=== PATIENT | male | born 1955 | race Caucasian/White ===

== ENCOUNTER 2017-12-08 16:42 | Emergency (ER) | payer OTHER ==
[~2017-12-08] VITALS: Ht 172.7 cm; Wt 121.6 kg
[~2017-12-08 16:42] MED LIST: ALBU90OI61 INH; AMLO10 PO; ASPI81CH PO; ATOR20 PO; Atrovent Inha12.9 GM INH; BENA20 PO; Coenzyme Q10100 M1 PO; FURO40 PO; METO50ER PO; NICO21TP TD; PANT40 PO; TRAM50 PO; Zithromax500 MG PO
[2017-12-08 17:26] LABS: BASOPHILS ABSOLUTE AUTO 0.08 K/mm3 (0.00-0.23); BASOPHILS PERCENT AUTO 1 % (0-2); EOSINOPHILS ABSOLUTE AUTO 0.31 K/mm3 (0.00-0.68); EOSINOPHILS PERCENT AUTO 2 % (0-6); Hematocrit 44.4 % (37.0-53.0); Hemoglobin 14.7 g/dL (13.5-17.5); IMMATURE GRAN ABSOLUTE AUTO 0.06 K/mm3 (0.00-0.10); IMMATURE GRAN PERCENT AUTO 0 % (0-1); LYMPHOCYTES ABSOLUTE AUTO 4.29 K/mm3 (0.84-5.20); LYMPHOCYTES PERCENT AUTO 29 % (21-46); MONOCYTES ABSOLUTE AUTO 1.22 K/mm3 (0.16-1.47); MONOCYTES PERCENT AUTO 8 % (4-13); Mean Corpuscular HGB 29.5 pg (26.0-34.0); Mean Corpuscular HGB Conc 33.1 g/dL (31.5-36.5); Mean Corpuscular Volume 89 fL (80-100); NEUTROPHILS ABSOLUTE AUTO 8.66 K/mm3 (1.96-9.15); NEUTROPHILS PERCENT AUTO 59 % (41-73); Platelet Count 331 K/mm3 (150-400); RDW Coefficient Variation 12.6 % (11.7-14.2); RDW Standard Deviation 41.2 fL (35.1-46.3); Red Blood Cell Count 4.98 M/mm3 (4.30-5.90); White Blood Cell Count 14.62 K/mm3 (4.00-11.30)
[2017-12-08 17:46] LABS: Alanine Aminotransfer (ALT/SGP 42 U/L (12-78); Albumin, Blood 3.6 g/dL (3.4-5.0); Albumin/Globulin Ratio 0.8 (0.8-1.8); Alk Phos 98 U/L (50-136); Anion Gap 6 mmol/L (6-16); Aspartate Aminotrans (AST/SGOT 29 U/L (12-37); Bilirubin, Total 0.3 mg/dL (0.1-1.0); Blood Urea Nitrogen 9 mg/dL (8-24); Bun/Creatinine Ratio 9.8 (12.0-20.0); CO2, Blood 34 mmol/L (21-32); Calcium, Blood 9.1 mg/dL (8.5-10.1); Chloride, Blood 97 mmol/L (98-108); Creatinine, Blood 0.92 mg/dL (0.60-1.20); Globulin, Blood 4.3 g/dL (2.2-4.0); Glomerular Filtration Rate >60 (60-); Glucose, Blood 133 mg/dL (70-99); Potassium, Blood 3.4 mmol/L (3.5-5.5); Sodium, Blood 137 mmol/L (136-145); Total Protein, Blood 7.9 g/dL (6.4-8.2); Troponin I <0.015 ng/mL (0.000-0.040)
[2017-12-08] MEDS ORDERED: K-TAB ER20 MEQ PO (18:05)
== END 2017-12-08 18:14 | disposition home or self-care (01) ==
LOC: ER 16:42
PROVIDERS: Emergency Medicine
DX: I10 Essential (primary) hypertension (principal); E87.6 Hypokalemia; F17.210 Nicotine dependence, cigarettes, uncomplicated; Z88.5 Allergy status to narcotic agent; Z91.010 Allergy to peanuts; Z91.011 Allergy to milk products; Z79.899 Other long term (current) drug therapy; Z79.51 Long term (current) use of inhaled steroids; Z79.82 Long term (current) use of aspirin; Z87.442 Personal history of urinary calculi
CPT/HCPCS: 36415; 71046; 80053; 84484; 85025; 93005; 93010; 99284-25

== ENCOUNTER 2018-04-12 10:47 | Emergency (ER) | payer OTHER ==
[~2018-04-12] VITALS: Ht 172.7 cm; Wt 117.9 kg
[~2018-04-12 10:47] MED LIST changes: +K-TAB ER20 MEQ PO
[2018-04-12 11:09] LABS: Source, Urine Clean Catch
[2018-04-12 11:14] LABS: Bilirubin, Urine Neg (Neg); Blood, Urine 5+ (Neg); Glucose Qualitative, Urine Neg (Neg); Ketones, Urine Neg (Neg); Leukocyte Esterase, Urine Neg (Neg); Nitrite, Urine Neg (Neg); Protein, Urine Neg (Neg); Urobilinogen, Urine NORM (Normal)
[2018-04-12 11:26] LABS: Appearance, Urine Hazy (Clear); Bacteria Not Seen /hpf; Color, Urine Yellow (P-Yellow); Squamous Epithelial Cells Rare /hpf (Few); White Blood Cells, Urine Not Seen /hpf (0-5)
[2018-04-12 11:31] LABS: BASOPHILS ABSOLUTE AUTO 0.07 K/mm3 (0.00-0.23); BASOPHILS PERCENT AUTO 1 % (0-2); EOSINOPHILS ABSOLUTE AUTO 0.24 K/mm3 (0.00-0.68); EOSINOPHILS PERCENT AUTO 2 % (0-6); Hemoglobin 15.6 g/dL (13.5-17.5); IMMATURE GRAN ABSOLUTE AUTO 0.05 K/mm3 (0.00-0.10); IMMATURE GRAN PERCENT AUTO 0 % (0-1); LYMPHOCYTES ABSOLUTE AUTO 4.48 K/mm3 (0.84-5.20); LYMPHOCYTES PERCENT AUTO 30 % (21-46); MONOCYTES ABSOLUTE AUTO 1.17 K/mm3 (0.16-1.47); MONOCYTES PERCENT AUTO 8 % (4-13); Mean Corpuscular HGB 28.8 pg (26.0-34.0); Mean Corpuscular HGB Conc 32.5 g/dL (31.5-36.5); Mean Corpuscular Volume 89 fL (80-100); NEUTROPHILS PERCENT AUTO 60 % (41-73); Platelet Count 336 K/mm3 (150-400); RDW Coefficient Variation 13.3 % (11.7-14.2); RDW Standard Deviation 43.6 fL (35.1-46.3); Red Blood Cell Count 5.42 M/mm3 (4.30-5.90); White Blood Cell Count 15.11 K/mm3 (4.00-11.30)
[2018-04-12 11:51] LABS: Alanine Aminotransfer (ALT/SGP 30 U/L (12-78); Albumin, Blood 3.5 g/dL (3.4-5.0); Albumin/Globulin Ratio 0.8 (0.8-1.8); Alk Phos 82 U/L (50-136); Anion Gap 6 mmol/L (6-16); Aspartate Aminotrans (AST/SGOT 24 U/L (12-37); Bilirubin, Total 0.5 mg/dL (0.1-1.0); Blood Urea Nitrogen 10 mg/dL (8-24); Bun/Creatinine Ratio 10.1 (12.0-20.0); CO2, Blood 30 mmol/L (21-32); Calcium, Blood 8.7 mg/dL (8.5-10.1); Chloride, Blood 100 mmol/L (98-108); Creatinine, Blood 0.99 mg/dL (0.60-1.20); Globulin, Blood 4.3 g/dL (2.2-4.0); Glomerular Filtration Rate >60 (60-); Glucose, Blood 100 mg/dL (70-99); Potassium, Blood 4.3 mmol/L (3.5-5.5); Sodium, Blood 136 mmol/L (136-145); Total Protein, Blood 7.8 g/dL (6.4-8.2)
== END 2018-04-12 12:31 | disposition home or self-care (01) ==
LOC: ER 10:47
PROVIDERS: Physician Assistant
DX: R31.9 Hematuria, unspecified (principal); Z88.5 Allergy status to narcotic agent; Z91.010 Allergy to peanuts; Z91.011 Allergy to milk products; Z79.899 Other long term (current) drug therapy; Z79.82 Long term (current) use of aspirin; I10 Essential (primary) hypertension; F17.210 Nicotine dependence, cigarettes, uncomplicated
CPT/HCPCS: 36415; 74176; 80053; 81001; 85025; 96374; 96375; 99284-25; J1885; J3010

== ENCOUNTER 2020-01-25 16:54 | Inpatient (IN) | payer OTHER ==
[~2020-01-25] VITALS: Ht 172.7 cm; Wt 132.3 kg
[~2020-01-25 16:54] MED LIST changes: -ALBU90OI61 INH; -ASPI81CH PO; -ATOR20 PO; -Atrovent Inha12.9 GM INH; -Coenzyme Q10100 M1 PO; -FURO40 PO; -METO50ER PO; -PANT40 PO
[2020-01-25 17:49] LABS: BASOPHILS ABSOLUTE AUTO 0.06 K/mm3 (0.00-0.23); BASOPHILS PERCENT AUTO 0 % (0-2); EOSINOPHILS ABSOLUTE AUTO 0.19 K/mm3 (0.00-0.68); EOSINOPHILS PERCENT AUTO 1 % (0-6); Hematocrit 41.3 % (37.0-53.0); Hemoglobin 13.5 g/dL (13.5-17.5); IMMATURE GRAN ABSOLUTE AUTO 0.07 K/mm3 (0.00-0.10); IMMATURE GRAN PERCENT AUTO 1 % (0-1); LYMPHOCYTES ABSOLUTE AUTO 4.31 K/mm3 (0.84-5.20); LYMPHOCYTES PERCENT AUTO 31 % (21-46); MONOCYTES ABSOLUTE AUTO 1.17 K/mm3 (0.16-1.47); MONOCYTES PERCENT AUTO 9 % (4-13); Mean Corpuscular HGB 29.3 pg (26.0-34.0); Mean Corpuscular HGB Conc 32.7 g/dL (31.5-36.5); Mean Corpuscular Volume 90 fL (80-100); Mean Platelet Volume 9.3 fL (9.1-12.4); NEUTROPHILS ABSOLUTE AUTO 7.95 K/mm3 (1.96-9.15); NEUTROPHILS PERCENT AUTO 58 % (41-73); Platelet Count 375 K/mm3 (150-400); RDW Coefficient Variation 12.5 % (11.7-14.2); RDW Standard Deviation 41.1 fL (35.1-46.3); Red Blood Cell Count 4.61 M/mm3 (4.30-5.90); White Blood Cell Count 13.75 K/mm3 (4.00-11.30)
[2020-01-25 18:30] LABS: Troponin I <0.015 ng/mL (0.000-0.040)
[2020-01-25 18:32] LABS: Alanine Aminotransfer (ALT/SGP 40 U/L (12-78); Albumin, Blood 3.8 g/dL (3.4-5.0); Alk Phos 157 U/L (50-136); Anion Gap 6 mmol/L (6-16); Aspartate Aminotrans (AST/SGOT 22 U/L (12-37); Bilirubin, Total 0.3 mg/dL (0.1-1.0); Blood Urea Nitrogen 13 mg/dL (8-24); Bun/Creatinine Ratio 13.3 (12.0-20.0); CO2, Blood 31 mmol/L (21-32); Calcium, Blood 9.4 mg/dL (8.5-10.1); Chloride, Blood 102 mmol/L (98-108); Creatinine, Blood 0.98 mg/dL (0.60-1.20); Glomerular Filtration Rate >60 (60-); Glucose, Blood 281 mg/dL (70-99); Potassium, Blood 3.8 mmol/L (3.5-5.5); Sodium, Blood 139 mmol/L (136-145); Total Protein, Blood 7.8 g/dL (6.4-8.2)
[2020-01-25] MEDS ORDERED: ALBU90OI61 INH (19:57)
[2020-01-25] MEDS ORDERED: SYMBICORT 160-4.6 GM INH (22:03)
[2020-01-25] MEDS ORDERED: Aspir 8181 MG PO (22:07)
[2020-01-25] MEDS ORDERED: ATOR80 PO (22:08)
[2020-01-25] MEDS ORDERED: BASAGLAR K100 UNIT/1 SC (22:09)
[2020-01-25] MEDS ORDERED: BENAZEPRIL HCL40 M1 PO (22:09)
[2020-01-25] MEDS ORDERED: DILT180 PO (22:10)
[2020-01-25] MEDS ORDERED: FURO20 PO (22:11)
[2020-01-25] MEDS ORDERED: FINA5 PO (22:11)
[2020-01-25] MEDS ORDERED: Isosorbide Mono30 MG PO (22:12)
[2020-01-25] MEDS ORDERED: METF500C PO (22:13)
[2020-01-25] MEDS ORDERED: METO100ER PO (22:13)
[2020-01-25] MEDS ORDERED: PANT40 PO (22:14)
[2020-01-25] MEDS ORDERED: POTCHL20ER PO (22:14)
[2020-01-25] MEDS ORDERED: RANOLAZINE ER500 M2 PO (22:16)
[2020-01-25] MEDS ORDERED: IPRAT-ALBUT 0.5-3 ML NEB (22:17)
[2020-01-25] MEDS ORDERED: TAMS.4ER PO (22:18)
[2020-01-25] MEDS ORDERED: Coenzyme Q10100 M1 PO (22:59)
[2020-01-25] MEDS ORDERED: SENN187 PO (23:00)
[2020-01-25] MEDS ORDERED: HYDMOR2 PO (23:00)
[2020-01-26 05:28] LABS: BASOPHILS ABSOLUTE AUTO 0.06 K/mm3 (0.00-0.23); BASOPHILS PERCENT AUTO 1 % (0-2); EOSINOPHILS ABSOLUTE AUTO 0.22 K/mm3 (0.00-0.68); EOSINOPHILS PERCENT AUTO 2 % (0-6); Hematocrit 36.6 % (37.0-53.0); Hemoglobin 11.7 g/dL (13.5-17.5); IMMATURE GRAN ABSOLUTE AUTO 0.07 K/mm3 (0.00-0.10); IMMATURE GRAN PERCENT AUTO 1 % (0-1); LYMPHOCYTES ABSOLUTE AUTO 3.83 K/mm3 (0.84-5.20); LYMPHOCYTES PERCENT AUTO 31 % (21-46); MONOCYTES ABSOLUTE AUTO 1.07 K/mm3 (0.16-1.47); MONOCYTES PERCENT AUTO 9 % (4-13); Mean Corpuscular HGB 28.7 pg (26.0-34.0); Mean Corpuscular Volume 90 fL (80-100); Mean Platelet Volume 9.4 fL (9.1-12.4); NEUTROPHILS ABSOLUTE AUTO 7.28 K/mm3 (1.96-9.15); NEUTROPHILS PERCENT AUTO 58 % (41-73); Platelet Count 326 K/mm3 (150-400); RDW Coefficient Variation 12.3 % (11.7-14.2); RDW Standard Deviation 40.2 fL (35.1-46.3); Red Blood Cell Count 4.07 M/mm3 (4.30-5.90); White Blood Cell Count 12.53 K/mm3 (4.00-11.30)
--- NOTE | 2020-01-26 05:41 | NUR ---
SHIFT SUMMARY PT HAS SLEPT FROM ABOUT 0200 TO THE PRESENT TIME. HE IS ALERT AND ORIENTED X 4. HIS VITALS ARE STABLE, SINUS TO SINUS SHIRA (57-70). BP HAS BEEN UP AND DOWN. NITROGLYCERIN GTTP INFUSING AT 10 MCG/MIN. DR. PEÑALOZA WANTS HIM TO STAY BETWEEN 160-180 T/O THE NIGHT BEST POSSIBLE. HE IS SLEEPING WITH HIS HOME CPAP, WITH A 2L O2 BLEED IN. LAST NIGHT HE WAS HAVING 5/10 CHEST PAIN AND A 10/10 HEADACHE, AND THEN HE RECEIVED DILAUDID AND FELL ASLEEP. HE IS INDEPENDENT IN THE BED, REPOSITIONING SELF. BED LOW AND LOCKED. CALL LIGHT WITIN JUAN.
[2020-01-26 06:02] LABS: Alanine Aminotransfer (ALT/SGP 33 U/L (12-78); Albumin, Blood 3.1 g/dL (3.4-5.0); Albumin/Globulin Ratio 0.9 (0.8-1.8); Alk Phos 88 U/L (50-136); Anion Gap 7 mmol/L (6-16); Aspartate Aminotrans (AST/SGOT 19 U/L (12-37); Bilirubin, Total 0.5 mg/dL (0.1-1.0); Blood Urea Nitrogen 13 mg/dL (8-24); Bun/Creatinine Ratio 14.9 (12.0-20.0); CO2, Blood 30 mmol/L (21-32); Calcium, Blood 8.4 mg/dL (8.5-10.1); Chloride, Blood 101 mmol/L (98-108); Creatinine, Blood 0.87 mg/dL (0.60-1.20); Globulin, Blood 3.5 g/dL (2.2-4.0); Glomerular Filtration Rate >60 (60-); Glucose, Blood 172 mg/dL (70-99); Potassium, Blood 3.4 mmol/L (3.5-5.5); Sodium, Blood 138 mmol/L (136-145); Total Protein, Blood 6.6 g/dL (6.4-8.2); Troponin I <0.015 ng/mL (0.000-0.040)
--- NOTE | 2020-01-26 10:48 | NUR ---
CARE ASSUMED ASSESSMENT COMPLETED, PT ON NITRO GTT AT 5MCG, TITRATING TO KEEP SBP 160-180. PT USES CPAP AT NIGHT, OFF AT THIS TIME AND USING 2L/NC WHICH IS PT'S BASELINE. BP LABILE, OTHER VSS. ALERT AND ORIENTED, SPEECH MUMBLED BUT ANSWERS ARE APPROPRIATE, PT COOEPRATIVE WITH CARE. PT REPORTS BACK PAIN 11/05, MEDICATED PER MAY. BREAKFAST AND PO MEDS TOLERATED WELL. DR. RUCKER IN TO SEE PATIENT. IV TO R UPPER ARM INFILTRATED, DC'D WITH TIP INTACT. NITRO GTT MOVED TO L AC, RATE DECREASED TO 5MCG, BP 160'S SYSTOLIC.
[2020-01-26 13:53] LABS: BASOPHILS ABSOLUTE AUTO 0.06 K/mm3 (0.00-0.23); BASOPHILS PERCENT AUTO 1 % (0-2); EOSINOPHILS ABSOLUTE AUTO 0.22 K/mm3 (0.00-0.68); EOSINOPHILS PERCENT AUTO 2 % (0-6); Hematocrit 36.2 % (37.0-53.0); Hemoglobin 11.8 g/dL (13.5-17.5); IMMATURE GRAN ABSOLUTE AUTO 0.05 K/mm3 (0.00-0.10); IMMATURE GRAN PERCENT AUTO 0 % (0-1); LYMPHOCYTES ABSOLUTE AUTO 3.69 K/mm3 (0.84-5.20); LYMPHOCYTES PERCENT AUTO 29 % (21-46); MONOCYTES ABSOLUTE AUTO 1.05 K/mm3 (0.16-1.47); MONOCYTES PERCENT AUTO 8 % (4-13); Mean Corpuscular HGB 29.4 pg (26.0-34.0); Mean Corpuscular HGB Conc 32.6 g/dL (31.5-36.5); Mean Corpuscular Volume 90 fL (80-100); Mean Platelet Volume 9.4 fL (9.1-12.4); NEUTROPHILS ABSOLUTE AUTO 7.83 K/mm3 (1.96-9.15); NEUTROPHILS PERCENT AUTO 61 % (41-73); Platelet Count 339 K/mm3 (150-400); RDW Coefficient Variation 12.5 % (11.7-14.2); RDW Standard Deviation 41.4 fL (35.1-46.3); Red Blood Cell Count 4.02 M/mm3 (4.30-5.90)
--- NOTE | 2020-01-26 16:49 | NUR ---
UPADTE PT'S SBP CONTINUED TO BE >190, PO HYDRALAZINE ADMINISTERED WITH NO EFFECT. DR. RUCKER NOTIFIED, NEW ORDERS, NITRO GTT RESUMED AT 5MCG.
--- NOTE | 2020-01-26 19:19 | NUR ---
END OF SHIFT BP CONTINUES TO BE HYPERTENSIVE, INCREASES WITH STANDING AT BEDSIDE TO VOID. NITRO GTT UP TO 15MCG AT THIS TIME. PT REPORTS CP AND SOB ARE AT BASELINE LEVELS AT THIS TIME. HR REMAINS SINUS 70'S, OTHER VSS. DISCUSSED BP WITH DR. RUCKER, HCTZ ADMINISTERED PER ORDERS. AWARE THAT PT HAD A RENAL US IN [place] "A COUPLE OF YEARS AGO." PT PLEASANT AND COOPERATIVE, DENIES OTHER C/O, TOLERATED MEALS WELL. AT BEDSIDE, REPORT TO ONCOMING SHIFT.
--- NOTE | 2020-01-26 19:20 | NUR ---
ASSUMED PT CARE REPORT RECEIVED FROM MIGUELITO LOVE AT 1910, ASSUMED PT CARE AT THAT TIME. PT ALERT AND ORIENTED. LYING IN BED IN POSITION OF COMFORT. PT STATES CHEST PAIN IMPROVED FROM ADMIT BUT STILL PRESENT (10/05). PT HAS NITRO INFUSING AT 15MCG TO LEFT AC ACCESS. PT STATES THAT THIS GIVES HIM A HEADACHE. PT HAS NEW 18G TO RIGHT AC, SITE WNL. DRESSING INTACT. SBP GOAL 160-180. PT HR 70S SR ON MONITOR. PT SKIN INTACT. ABD SOFT BUT DISTENDED. BOWEL SOUNDS PRESENT. PT VOIDS PER URINAL. PT SATS >92% ON2L. PT WEARS 2L AT HOME, USES CPAP AT NIGHT. LUNG SOUNDS CLEAR TO UPPER VALENTIN, CLEAR AND DIMINISHED TO LOWER. PT AFEBRILE. CALL LIGHT IN REACH. LEAVING FOR THE EVENING. SEE FULL SHIFT ASSESSMENT
[2020-01-27 03:38] LABS: Anion Gap 6 mmol/L (6-16); Blood Urea Nitrogen 14 mg/dL (8-24); Bun/Creatinine Ratio 14.2 (12.0-20.0); CO2, Blood 30 mmol/L (21-32); Chloride, Blood 99 mmol/L (98-108); Creatinine, Blood 0.99 mg/dL (0.60-1.20); Glomerular Filtration Rate >60 (60-); Glucose, Blood 173 mg/dL (70-99); Potassium, Blood 3.6 mmol/L (3.5-5.5); Sodium, Blood 135 mmol/L (136-145)
--- NOTE | 2020-01-27 05:59 | NUR ---
SHIFT SUMMARY PT HAD GOOD NIGHT. PT REMAINED ALERT AND ORIENTED THROUGHOUT SHIFT. PT IN NSR ON MONITOR RATE 60'S. BP TRENDS THIS SHIFT IMPROVED COMPAIRED TO YESTERDAY. PT MOVES INDEPENDENTLY IN BED, SITS ON BEDSIDE TO USE URINAL. SKIN OVER ALL C/D/I. ABD DISTENDED BUT SOFT. BOWEL SOUNDS ACTIVE. PT PASSING GAS, NO BM THIS SHIFT. PT TAKES MEDS WHOLE, GOOD APPETITE. PT NITRO DRIP TITRATED OFF THIS AM AT 0400. BP STABLE. PT HAS 18G TO RIGHT AC AND 20G TO LEFT AC. BOTH SITES WNL, DRESSING C/D/I. PULSES STRONG AND EQUAL. PT C/O CHRONIC BACK PAIN THAT HE TAKES PO DILAUDID FOR, PT RESTING IN POSITION OF COMFORT. WILL REPORT TO ONCOMING SHIFT.
--- NOTE | 2020-01-27 10:04 | NUR ---
CARE ASSUMED ASSESSMENT COMPLETED, PT SITTING UP IN BED WATCHING TV, SBP 140'S, NITRO GTT REMAINS OFF. HRR, LS CLEAR, DIM IN BASES, O2 2L/NC WITH SPO2 >90%. PT REPORTS MID CHEST PAIN WITHOUT RADIATION, PAIN IS BASELINE AT THIS TIME PER PT. MEDICATED PER MAY, BREAKFAST GIVEN. PT UP TO CHAIR FOR AM CARES, THEN BACK TO BED, DENIES OTHER NEEDS. VOIDS IN URINAL.
--- NOTE | 2020-01-27 10:56 | NUR ---
UPDATE SBP 140-160'S AT REST, UP TO 170'S WITH MINIMAL EXERTION DURING AM CARES AT BEDSIDE. DR. RUCKER NOTIFIED, NO NEW ORDERS RECEIVED AT THIS TIME. NO OTHER CAHNGES.
--- NOTE | 2020-01-27 18:24 | NUR ---
END OF SHIFT PT'S BP WAS CONTROLLED FOR A SHORT TIME THIS AFTERNOON, THEN RETURNED TO SBP 170-200. DR. RUCKER AWARE, NEW ORDERS RECEIVED. LABETOLOL ADMINISTERED PER ORDERS WITH NO EFFECT, NITRO GTT RESUMED AT 15MCG. PT HAS DENIED CP AND SOB BEYOND BASELINE TODAY, WAS ON 2L WHILE AWAKE AND CPAP WHILE NAPPING. MEDICATED X1 FOR PAIN, REMAINS PLEASANT AND COOPERATIVE WITH CARE, TOLERATED MEALS AND PO MEDS WELL. PT'S AT BEDSIDE AT THIS TIME, WILL CONTINUE TO MONITOR AND TITRATE NITRO GTT TO EFFECT, REPORT TO ONCOMING SHIFT.
--- NOTE | 2020-01-27 20:00 | NUR ---
ASSUMPTION OF CARE RECEIVED HAND OFF FROM Thea TELLO RN USING SBAR. LYING IN SEMI FOWLERS WITH EYES OPEN WHILE WATCHING TV WITH SPOUSE AT BEDSIDE. RESPIRATIONS EVEN AND UNLABORED ON O2 AT 2L/NC. LUNG SOUNDS COARSE BILATERALLY. ABDOMEN SOFT, ROUND, AND OBESE. BOWEL SOUNDS NOTED IN ALL QUADS. STATES HE HAS NOT HAD BM SINCE ADMISSION. ELEVATED BP NOTED VIA BEDSIDE MONITORING. NITRO INFUSING TO LEFT AC 20G PIV PER MD ORDERS. RIGHT AC 18G SL PIV IS PATENT, FLUSING WITH EASE. DENEIS FURTHER NEEDS OR WANTS AT THIS TIME. SAFETY MEASURES IN PLACE. WILL CONTINUE TO MONITOR.
--- NOTE | 2020-01-27 22:55 | NUR ---
NITRO GTT TITRATED TO 10MG/HR FROM 20MG/HR D/T BP OF 120/65 (85). PT RESTING WITH EYES CLOSED WHILE TV IS ON ROOT NEWS. BIPAP IS IN PLACE AND FUNCTIONING WELL. SAFETY MEASURES IN PLACE. WILL CONTINUE TO MONITOR.
--- NOTE | 2020-01-28 00:52 | NUR ---
TITRATED NITRO FROM 10MG/HR TO 5MG/HR D/T SBP OF 118. PT LYING IN SEMI FOWLERS WITH BIPAP IN PLACE. DENEIS DISCOMFORT, SOB, OR FURTHER NEEDS AT THSI TIME. SAFETY MEASURES IN PLACE. WILL CONTINUE TO MONITOR.
--- NOTE | 2020-01-28 01:07 | NUR ---
NITRO GTT STOPPED DUE TO SBP MAINTAINED AT 118. DENIES PAIN, DISCOMFORT, OR FURTHER NEEDS AT THIS TIME. SAFETY MEASURES IN PLACE. WILL CONTINUE TO MONITOR.
[2020-01-28 03:50] LABS: Anion Gap 7 mmol/L (6-16); Blood Urea Nitrogen 18 mg/dL (8-24); Bun/Creatinine Ratio 15.7 (12.0-20.0); CO2, Blood 31 mmol/L (21-32); Calcium, Blood 8.8 mg/dL (8.5-10.1); Chloride, Blood 97 mmol/L (98-108); Creatinine, Blood 1.15 mg/dL (0.60-1.20); Glomerular Filtration Rate >60 (60-); Glucose, Blood 170 mg/dL (70-99); Potassium, Blood 3.5 mmol/L (3.5-5.5); Sodium, Blood 135 mmol/L (136-145)
--- NOTE | 2020-01-28 04:47 | NUR ---
LYING IN SEMI FOWLERS WITH EYES OPEN. AAO X4, [place], FOLLOWS ALL COMMANDS. HAS RESTED WELL OFF AND ON THROUGHOUT SHIFT. SBP DROPPD TO 120 AND 118, NITRO GTT STOPPED. HAS MAINTAINED SBP IN THE 100'S TO 140'S. PAIN MANGED WITH PO DILAUDID AT HOME DOSE PER MD ORDERS. USES URINAL AT BEDSIDE WITH STANDBY ASSIST. DENIES PAIN, DISCOMFORT, OR FURTHER NEEDS AT THIS TIME. SAFETY MEASURES IN PLACE. WILL CONTINUE TO MONITOR.
--- NOTE | 2020-01-28 06:00 | NUR ---
SHIFT SUMMARY LYING IN SEMI FOWLERS WITH YES OPEN. HAS TAKEN BIPAP OFF AND IS STILL WATCHING ROOT NEWS. GIVEN FRESH ICE WATER AND 2/3RDS OF A LARGE (32OZ) CUP IS POURED OUT. NO CHANGES SINCE START OF SHIFT. DENIES PAIN, DISCOMFORT, OR FURTHER NEEDS AT THIS TIME. SAFETY MEASURES IN PLACE. WILL CONTINUE TO MONITOR AND GIVE HAND OFF TO ONCOMING SHIFT USING SBAR.
--- NOTE | 2020-01-28 09:58 | NUR ---
CARE ASSUMED ASSESSMENT COMPLETED, PT RESTING IN BED, STATES SOB, ANGINA, AND BACK PAIN ARE BASELINE AT THIS TIME. O2 2L/NC, SPO2 >95%. SBP 120-150'S, NITRO GTT REMAINS OFF, VSS. AM MEDS ADMINISTERED, PT TOLERATED BREAKFAST WELL. DR. DIAZ IN TO SEE PATIENT, PLAN FOR DC TO HOME TODAY. PT DENIES NEEDS AT THIS TIME.
[2020-01-28] MEDS ORDERED: HYDR100 PO (10:55)
[2020-01-28] MEDS ORDERED: HYDCHL25 PO (10:56)
--- NOTE | 2020-01-28 12:12 | NUR ---
DC NOTE SBP REMAINED BELOW 170, PT'S SYMPTOMS ARE AT BASELINE PER HIS REPORT. DR. DIAZ IN TO ASSESS, DC ORDERS RECEIVED, RX'S FAXED TO [facility] IN DAISY. IV'S DC'D WITH TIPS INTACT, PRESSURE DRESSINGS APPLIED. PT DC TO HOME WITH BELONGINGS AND DC, MED, AND F/U INSTRUCTIONS, VERBALIZES UNDERSTANDING. TO HOME WITH GRANDSON TO DRIVE, ASSISTED TO CAR VIA WC BY STAFF. PT ON HOME O2 UPON DISCHARGE.
== END 2020-01-28 11:55 | disposition home or self-care (01) | DRG 305 ==
LOC: ER 16:54 → ICUW 22:52 → ER 01-26 00:23 → ICUW 01-26 00:25
PROVIDERS: Physician Assistant; Student in an Organized Health Care Education/Training Program; ADMIT Internal Medicine
DX: I16.1 Hypertensive emergency (principal); I25.110 Atherosclerotic heart disease of native coronary artery with unstable angina pectoris; I42.2 Other hypertrophic cardiomyopathy; Z66 Do not resuscitate; I10 Essential (primary) hypertension; E78.5 Hyperlipidemia, unspecified; J44.9 Chronic obstructive pulmonary disease, unspecified; E11.69 Type 2 diabetes mellitus with other specified complication; M19.90 Unspecified osteoarthritis, unspecified site; M79.7 Fibromyalgia; M06.9 Rheumatoid arthritis, unspecified; R51.9 Headache, unspecified; F17.210 Nicotine dependence, cigarettes, uncomplicated; Z99.81 Dependence on supplemental oxygen; Z79.4 Long term (current) use of insulin; I25.2 Old myocardial infarction; Z86.73 Personal history of transient ischemic attack (TIA), and cerebral infarction without residual deficits; Z79.82 Long term (current) use of aspirin; Z79.84 Long term (current) use of oral hypoglycemic drugs
CPT/HCPCS: 36415; 71046; 80048; 80053; 82947; 83880; 84484; 85025; 93005; 93010; 94640; 96365; 96366; 96375; 99285-25; A9270-GY; J1644; J1885; J2060; J2550

== ENCOUNTER 2022-10-22 01:37 | Emergency (ER) | payer OTHER ==
[~2022-10-22] VITALS: Ht 172.7 cm; Wt 131.5 kg
[~2022-10-22 01:37] MED LIST changes: +ALBU90OI61 INH; +ATOR80 PO; +Aspir 8181 MG PO; +BASAGLAR K100 UNIT/1 SC; +BENAZEPRIL HCL40 M1 PO; +Coenzyme Q10100 M1 PO; +DILT180 PO; +FINA5 PO; +FURO20 PO; +HYDCHL25 PO; +HYDMOR2 PO; +HYDR100 PO; +IPRAT-ALBUT 0.5-3 ML NEB; +Isosorbide Mono30 MG PO; +METF500C PO; +METO100ER PO; +PANT40 PO; +POTCHL20ER PO; +RANOLAZINE ER500 M2 PO; +SENN187 PO; +SYMBICORT 160-4.6 GM INH; +TAMS.4ER PO
[2022-10-22 01:57] VITALS: BP 203/80
[2022-10-22 03:54] LABS: BASOPHILS ABSOLUTE AUTO 0.06 K/mm3 (0.00-0.23); BASOPHILS PERCENT AUTO 0 % (0-2); EOSINOPHILS ABSOLUTE AUTO 0.03 K/mm3 (0.00-0.68); EOSINOPHILS PERCENT AUTO 0 % (0-6); Hematocrit 40.5 % (37.0-53.0); Hemoglobin 13.6 g/dL (13.5-17.5); IMMATURE GRAN ABSOLUTE AUTO 0.16 K/mm3 (0.00-0.10); IMMATURE GRAN PERCENT AUTO 1 % (0-1); LYMPHOCYTES ABSOLUTE AUTO 3.36 K/mm3 (0.84-5.20); LYMPHOCYTES PERCENT AUTO 14 % (21-46); MONOCYTES ABSOLUTE AUTO 1.66 K/mm3 (0.16-1.47); MONOCYTES PERCENT AUTO 7 % (4-13); Mean Corpuscular HGB 29.9 pg (26.0-34.0); Mean Corpuscular HGB Conc 33.6 g/dL (31.5-36.5); Mean Corpuscular Volume 89 fL (80-100); Mean Platelet Volume 9.6 fL (9.1-12.4); NEUTROPHILS ABSOLUTE AUTO 18.09 K/mm3 (1.96-9.15); NEUTROPHILS PERCENT AUTO 77 % (41-73); Platelet Count 363 K/mm3 (150-400); RDW Coefficient Variation 12.9 % (11.7-14.2); RDW Standard Deviation 42.1 fL (35.1-46.3); Red Blood Cell Count 4.55 M/mm3 (4.30-5.90); White Blood Cell Count 23.36 K/mm3 (4.00-11.30)
[2022-10-22 04:35] LABS: Albumin, Blood 3.4 g/dL (3.4-5.0); Albumin/Globulin Ratio 0.8 (0.8-1.8); Bilirubin, Total 0.3 mg/dL (0.1-1.0); Bun/Creatinine Ratio 23.8 (12.0-20.0); Calcium, Blood 9.3 mg/dL (8.5-10.1); Creatinine, Blood 1.01 mg/dL (0.60-1.20); Potassium, Blood 4.5 mmol/L (3.5-5.5); Total Protein, Blood 7.4 g/dL (6.4-8.2)
[2022-10-22 05:04] LABS: Source, Urine Clean Catch
[2022-10-22 05:13] LABS: Appearance, Urine Hazy (Clear); Bilirubin, Urine Neg (Neg); Blood, Urine 5+ (Neg); Color, Urine Yellow (P-Yellow); Glucose Qualitative, Urine 3+ (Neg); Ketones, Urine Neg (Neg); Leukocyte Esterase, Urine 2+ (Neg); Nitrite, Urine Neg (Neg); Protein, Urine 3+ (Neg); Specific Gravity, Urine 1.015 (1.003-1.022); Urobilinogen, Urine NORM (Normal)
[2022-10-22 05:31] LABS: Red Blood Cells, Urine 25-50 /hpf (0-2); Squamous Epithelial Cells Not Seen /hpf (Few)
[2022-10-22 05:33] LABS: Bacteria Many /hpf
[2022-10-22] MEDS ORDERED: CEPH500 PO (06:00)
== END 2022-10-22 06:14 | disposition home or self-care (01) ==
LOC: ER 01:37
PROVIDERS: Student in an Organized Health Care Education/Training Program
DX: N30.91 Cystitis, unspecified with hematuria (principal); I10 Essential (primary) hypertension; E11.9 Type 2 diabetes mellitus without complications; J44.9 Chronic obstructive pulmonary disease, unspecified; E78.00 Pure hypercholesterolemia, unspecified; I25.2 Old myocardial infarction; M06.9 Rheumatoid arthritis, unspecified; F17.210 Nicotine dependence, cigarettes, uncomplicated; Z91.010 Allergy to peanuts; Z88.0 Allergy status to penicillin; Z91.011 Allergy to milk products; Z88.8 Allergy status to other drugs, medicaments and biological substances; Z79.51 Long term (current) use of inhaled steroids; Z79.82 Long term (current) use of aspirin; Z79.4 Long term (current) use of insulin; Z79.84 Long term (current) use of oral hypoglycemic drugs; Z79.899 Other long term (current) drug therapy
CPT/HCPCS: 36415; 80053; 81001; 85025; 87077; 87086; 87186; 96365; 96375; 99283-25; J0696; J1885; J2405; J7030

== ENCOUNTER → 2023-09-14 | Outpatient (CLI) | payer OTHER ==
[~2023-09-14] MED LIST changes: +CEPH500 PO
== END | disposition home or self-care (01) ==
LOC: LAB SHORT 16:58 → LAB 16:58
DX: R35.0 Frequency of micturition (principal)
CPT/HCPCS: 87086

== ENCOUNTER → 2025-01-12 | Outpatient (CLI) | payer OTHER ==
[~2025-01-12] MED LIST changes: +ATOR40TA PO; +AZIT250 PO; +DILTIAZEM 24HR180 M3 PO; +INSULIN GL100 UNIT/2; +Nitrostat0.3 MG; +PRAMIPEXOLE DIHY1 M1 PO; +TORS10 PO
[2025-01-12 20:47] LABS: Creatinine, Urine Random 26.9 mg/dL (27.00-270.00); Microalb/Creat Ratio UR, Rand 256.877 mg/g (0.000-30.000); Microalbumin, Random Urine 69.1 mg/L (0.000-20.000)
== END ==
LOC: LAB 17:08 → LAB SHORT 17:08
PROVIDERS: Physician Assistant
DX: E11.42 Type 2 diabetes mellitus with diabetic polyneuropathy (principal); Z79.4 Long term (current) use of insulin
CPT/HCPCS: 82043; 82570